=== PATIENT | male | born 1960 | race Caucasian/White ===

== ENCOUNTER 2020-02-17 13:43 | Emergency (ER) | payer SELFPAY ==
[~2020-02-17] VITALS: Ht 182.9 cm; Wt 68.3 kg
[2020-02-17 14:03] VITALS: BP 146/80
[2020-02-17] MEDS ORDERED: ACETAMINOPHEN 325 MG TABLET PO ONE (15:00)
[2020-02-17] MEDS ORDERED: IBUPROFEN 800 MG TABLET PO ONE (15:00)
== END 2020-02-17 15:02 | disposition home or self-care (01) ==
LOC: ED 14:50
DX: M72.2 Plantar fascial fibromatosis (principal); M79.672 Pain in left foot; M79.671 Pain in right foot; F17.200 Nicotine dependence, unspecified, uncomplicated
CPT/HCPCS: 99283

== ENCOUNTER 2020-11-14 16:34 | Inpatient (IN) | payer OTHER ==
[~2020-11-14] VITALS: Ht 182.9 cm; Wt 74.1 kg
--- NOTE | 2020-11-14 16:46 | NUR ---
BIB [facility] FROM TRAIN STATION. PT APPEARED CONFUSED AND COULDN'T STAND UP STRAIGHT PER TS EMPLOYEES. PER [facility] PT WITH A 104.1 TEMP. PIV X2, NS STARTED.
[2020-11-14] MEDS ORDERED: ACETAMINOPHEN 500 MG TABLET ONE (17:17)
--- NOTE | 2020-11-14 17:30 | NUR ---
PT QUITE RESTLESS. CONSTANTLY REMOVING MASK AND NASAL CANNULA. PROVIDER UPDATED FOR MED. PT EDUCATED AND VERBALIZES UNDERSTANDING.
[2020-11-14] MEDS ORDERED: LORazepam 2 MG/ML, 1ML ONE (17:42)
[2020-11-14 17:48] LABS: AMPHETAMINE SCREEN, URINE Negative (Negative); BARBITURATE SCREEN, URINE Negative (Negative); BENZODIAZEPINE SCREEN, URINE Negative (Negative); CANNABINOID SCREEN, URINE Positive (Negative); COCAINE SCREEN, URINE Negative (Negative); METHADONE SCREEN, URINE Negative (Negative); OPIATE SCREEN, URINE Negative (Negative)
[2020-11-14 17:49] LABS: MEAN CORPUSCULAR HEMOGLOBIN 34.6 pg (27.5-34.5); MEAN CORPUSCULAR HGB CONC 34.3 g/dL (33.2-36.2); MEAN PLATELET VOLUME 7.5 fL (7.4-10.4); PLATELET COUNT 169 x10^3/uL (130-400); RED BLOOD COUNT 4.43 x10^6/uL (4.38-5.82); RED CELL DISTRIBUTION WIDTH 13.1 % (9.4-14.8)
[2020-11-14 17:58] LABS: MICROSCOPIC INDICATED
[2020-11-14] MEDS ORDERED: CEFTRIAXONE PMX 1GM/50ML 50 ML ONE (17:58)
[2020-11-14] MEDS ORDERED: SODIUM CHLORIDE FLUSH 10ML SYR IVF ONE (18:00)
[2020-11-14] MEDS ORDERED: CEFTRIAXONE PMX 1GM/50ML 50 ML IV ONE (18:00)
[2020-11-14] MEDS ORDERED: ACETAMINOPHEN 500 MG TABLET PO ONE (18:00)
[2020-11-14] MEDS ORDERED: SODIUM CHLORIDE 0.9% 1,000ML IVBOLUS ONE (18:00)
[2020-11-14] MEDS ORDERED: LORazepam 2 MG/ML, 1ML IVPush ONE ×2 (18:00→19:00)
[2020-11-14 18:01] LABS: ALANINE AMINOTRANSFERASE 26 U/L (12-78); ALBUMIN 2.8 g/dL (3.4-5.0); ANION GAP 11 mmol/L (5-15); CALCIUM 7.3 mg/dL (8.5-10.1); CHLORIDE 103 mmol/L (98-107); CREATININE 0.59 mg/dL (0.7-1.3)
[2020-11-14 18:11] LABS: ALKALINE PHOSPHATASE 65 U/L (45-117); BILIRUBIN,TOTAL 1.1 mg/dL (0.2-1.0); TOTAL PROTEIN 6.1 g/dL (6.4-8.2)
[2020-11-14 18:22] LABS: MD YES
[2020-11-14 18:23] LABS: <PLATELET ESTIMATE> ADEQUATE; BAND#(MANUAL) 0.43 x10^3/uL; BANDS%(MANUAL) 2 % (0-7); LYMPH#(MANUAL) 1.28 x10^3/uL (1-3.4); LYMPHS% (MANUAL) 6 % (22-44); MONOS% (MANUAL) 7 % (2-9); SEG#(MANUAL) 18.19 x10^3/uL (1.8-6.8); SEGS% (MANUAL) 85 % (42-75)
[2020-11-14 18:24] LABS: <PLT MORPHOLOGY> NORMAL PLT MORPH; <RBC MORPHOLOGY> NORMAL
--- NOTE | 2020-11-14 18:26 | NUR ---
PT CONTINUES TO TAKE OFF NASAL CANNULA. PT 88% ON RA. PT MEDICATED PER NOV.
[2020-11-14 18:35] LABS: FREE T4 (FREE THYROXINE) 1.79 ng/dL (0.76-1.46)
[2020-11-14] MEDS ORDERED: AZITHROMYCIN 500 MG in SODIUM CHLORIDE 0.9% 250 ML IV ONE (19:00)
--- NOTE | 2020-11-14 19:07 | NUR ---
PT MOUTH BREATHING ON 6L NASAL CANNULA. CHANGED TO OXYMASK 6L SPO2 NOW 92%.
--- NOTE | 2020-11-14 19:20 | NUR ---
EDP AT BEDSIDE. TYE ORDERED. TO WATCH PT FOR ANOTHER 30 MIN APPROX BEFORE PT TO FLOOR.
[2020-11-14] MEDS ORDERED: ALBUTEROL/IPRATROPIUM 2.5MG/0.5MG, 3 ML ONE (19:24)
[2020-11-14] MEDS ORDERED: ALBUTEROL/IPRATROPIUM 2.5MG/0.5MG, 3 ML NEB ONE ×2 (19:30→20:00)
[2020-11-14] MEDS ORDERED: POTASSIUM CHLORIDE 20 MEQ, MAGNESIUM SULFATE 1 GM, FOLIC ACID 1 MG, THIAMINE 200 MG in ... IV ONE (19:30)
--- NOTE | 2020-11-14 19:55 | NUR ---
REPORT FROM FLORENTIN BARRETT RT TO BEDSIDE-PLACED ON OPTIFLOW
[2020-11-14] MEDS ORDERED: BISACODYL 10 MG SUPP PR PRN (20:00)
[2020-11-14] MEDS ORDERED: NS + 20MEQ KCL 1,000 ML IV SCH (20:00)
[2020-11-14] MEDS ORDERED: MAGNESIUM SULFATE PMX 4GM/100M 100 ML IVPB ONE (20:00)
[2020-11-14] MEDS ORDERED: ONDANSETRON ODT 4 MG PO PRN (20:00)
[2020-11-14] MEDS ORDERED: GUAIFENESIN/DM 200-20MG, 10ML UDC PO PRN (20:00)
[2020-11-14] MEDS ORDERED: ALBUTEROL SULFATE 2.5MG/0.5ML NPPB ONE (20:00)
[2020-11-14] MEDS ORDERED: POLYETHYLENE GLYCOL 17 GM PACKET PO PRN (20:00)
[2020-11-14] MEDS ORDERED: AZITHROMYCIN 500 MG in SODIUM CHLORIDE 0.9% 250 ML IV SCH (20:00)
--- NOTE | 2020-11-14 20:19 | NUR ---
With reassessment-pox improved to 97% on optiflow at 12lpm covid n/p swab obtained per guidelines-walked to lab Addendum: 11/14/20 at 2104 by RFRUHLING CORRECTION: 50 LPM- NOT 12LPM
--- NOTE | 2020-11-14 20:50 | NUR ---
ED MED ORDERS NOT ADMINISTERED DISCUSSED WITH INPATIENT RN JULES (POTASSIUM, ROCEPHIN, ETC). SHE WILL ADMIN NECCESSARY
[2020-11-14 22:00] VITALS: BP 142/83
[2020-11-14] MEDS: CEFTRIAXONE PMX 1GM/50ML 50 ML IV SCH (22:01)
[2020-11-14] MEDS: HEPARIN 5,000 UNITS/ML, 1ML SQ SCH (22:24)
[2020-11-14] MEDS ORDERED: No meds (22:34)
[2020-11-14] MEDS: THIAMINE 100MG TABLET PO SCH (23:22)
[2020-11-15 03:02] VITALS: BP 137/79
[2020-11-15 05:48] LABS: MEAN CORPUSCULAR HEMOGLOBIN 34.6 pg (27.5-34.5); MEAN CORPUSCULAR HGB CONC 34.1 g/dL (33.2-36.2); MEAN PLATELET VOLUME 7.6 fL (7.4-10.4); PLATELET COUNT 167 x10^3/uL (130-400); RED BLOOD COUNT 4.43 x10^6/uL (4.38-5.82)
[2020-11-15 05:49] LABS: MD YES
[2020-11-15 05:56] LABS: ANION GAP 6 mmol/L (5-15); CALCIUM 8.2 mg/dL (8.5-10.1); CHLORIDE 106 mmol/L (98-107)
[2020-11-15] MEDS: HEPARIN 5,000 UNITS/ML, 1ML SQ SCH ×3 (06:15→21:12)
[2020-11-15 06:45] LABS: <PLATELET ESTIMATE> ADEQUATE; <PLT MORPHOLOGY> NORMAL PLT MORPH; BAND#(MANUAL) 4.75 x10^3/uL; BANDS%(MANUAL) 19 % (0-7); LYMPHS% (MANUAL) 4 % (22-44); MONOS% (MANUAL) 8 % (2-9); PMNS WITH VACUOLES 1+; SEG#(MANUAL) 17.25 x10^3/uL (1.8-6.8); SEGS% (MANUAL) 69 % (42-75)
[2020-11-15 06:46] LABS: <RBC MORPHOLOGY> NORMAL
[2020-11-15 06:51] VITALS: BP 161/90
[2020-11-15] MEDS: THIAMINE 100MG TABLET PO SCH ×2 (08:55→21:11)
[2020-11-15] MEDS: FOLIC ACID 1 MG TABLET PO SCH (08:55)
[2020-11-15] MEDS: MULTIVITAMINS/MINERALS TABLET PO SCH (08:55)
[2020-11-15] MEDS: SENNA/DOCUSATE TABLET PO SCH (08:56)
[2020-11-15] MEDS ORDERED: DEXAMETHASONE 4 MG/ML, 1ML IVPush SCH (09:30)
[2020-11-15] MEDS ORDERED: ZINC SULFATE 220 MG CAPSULE PO SCH (09:30)
[2020-11-15] MEDS: CHOLECALCIFEROL 5,000u TAB PO SCH (09:52)
[2020-11-15] MEDS: METHIMAZOLE 5 MG TAB PO SCH (09:53)
[2020-11-15] MEDS: ASCORBIC ACID 500 MG TABLET PO SCH ×2 (09:53→16:11)
[2020-11-15 13:18] VITALS: BP 168/78
[2020-11-15] MEDS ORDERED: ALBUTEROL HFA 90 MCG/SPRAY INH PRN (16:00)
[2020-11-15 19:43] VITALS: BP 120/83
[2020-11-15] MEDS ORDERED: AZITHROMYCIN 500 MG in SODIUM CHLORIDE 0.9% 250 ML IV SCH (20:00)
[2020-11-15] MEDS: ACETAMINOPHEN 325 MG TABLET PO PRN (21:11)
[2020-11-15] MEDS: CEFTRIAXONE PMX 1GM/50ML 50 ML IV SCH (21:11)
[2020-11-16 01:01] VITALS: BP 134/84
[2020-11-16] MEDS: HEPARIN 5,000 UNITS/ML, 1ML SQ SCH ×3 (05:11→21:06)
[2020-11-16 06:18] LABS: MEAN CORPUSCULAR HEMOGLOBIN 34.7 pg (27.5-34.5); MEAN CORPUSCULAR HGB CONC 34.1 g/dL (33.2-36.2); MEAN PLATELET VOLUME 7.8 fL (7.4-10.4); PLATELET COUNT 163 x10^3/uL (130-400); RED BLOOD COUNT 4.11 x10^6/uL (4.38-5.82); RED CELL DISTRIBUTION WIDTH 13.1 % (9.4-14.8)
[2020-11-16 06:31] LABS: ALBUMIN 2.4 g/dL (3.4-5.0); ANION GAP 7 mmol/L (5-15); CALCIUM 8.4 mg/dL (8.5-10.1); CHLORIDE 111 mmol/L (98-107)
[2020-11-16 06:34] LABS: ALANINE AMINOTRANSFERASE 33 U/L (12-78); ALKALINE PHOSPHATASE 66 U/L (45-117); BILIRUBIN,TOTAL 0.7 mg/dL (0.2-1.0); CREATININE 0.45 mg/dL (0.7-1.3); TOTAL PROTEIN 6.1 g/dL (6.4-8.2)
[2020-11-16] MEDS: SENNA/DOCUSATE TABLET PO SCH (07:18)
[2020-11-16] MEDS: ASCORBIC ACID 500 MG TABLET PO SCH ×2 (07:33→16:12)
[2020-11-16] MEDS: THIAMINE 100MG TABLET PO SCH ×2 (07:33→21:05)
[2020-11-16] MEDS: FOLIC ACID 1 MG TABLET PO SCH (07:33)
[2020-11-16] MEDS: CHOLECALCIFEROL 5,000u TAB PO SCH (07:33)
[2020-11-16] MEDS: MULTIVITAMINS/MINERALS TABLET PO SCH (07:33)
[2020-11-16] MEDS: AZITHROMYCIN 500 MG TABLET PO SCH (07:33)
[2020-11-16] MEDS: METHIMAZOLE 5 MG TAB PO SCH (07:34)
[2020-11-16] MEDS: ACETAMINOPHEN 325 MG TABLET PO PRN ×3 (07:41→21:46)
[2020-11-16 07:45] LABS: MD YES
[2020-11-16 07:46] LABS: <RBC MORPHOLOGY> NORMAL; BAND#(MANUAL) 1.78 x10^3/uL; BANDS%(MANUAL) 10 % (0-7); LYMPHS% (MANUAL) 9 % (22-44); MONOS#(MANUAL) 0.71 x10^3/uL (0.3-2.7); MONOS% (MANUAL) 4 % (2-9); SEG#(MANUAL) 13.71 x10^3/uL (1.8-6.8); SEGS% (MANUAL) 77 % (42-75)
[2020-11-16 07:47] LABS: <PLATELET ESTIMATE> ADEQUATE; <PLT MORPHOLOGY> NORMAL PLT MORPH; PMNS WITH VACUOLES 1+
[2020-11-16 07:58] VITALS: BP 144/84
[2020-11-16] MEDS ORDERED: LOPERAMIDE 2 MG CAPSULE PO ONE (09:30)
[2020-11-16 12:16] VITALS: BP 142/89
[2020-11-16] MEDS: LACTOBACILLUS CHEW TABLET PO SCH ×2 (15:20→21:05)
[2020-11-16 18:31] VITALS: BP 140/82
[2020-11-16] MEDS: CEFTRIAXONE PMX 1GM/50ML 50 ML IV SCH (21:05)
[2020-11-17 01:10] VITALS: BP 176/95
[2020-11-17 01:50] VITALS: BP 151/88
[2020-11-17] MEDS: HEPARIN 5,000 UNITS/ML, 1ML SQ SCH ×3 (05:20→19:39)
[2020-11-17 06:48] LABS: BASOPHILS % (AUTO) 1 % (0-1); EOSINOPHILS % (AUTO) 0 % (1-7); LYMPHOCYTES % (AUTO) 15 % (22-44); MD NO; MEAN CORPUSCULAR HEMOGLOBIN 34.5 pg (27.5-34.5); MEAN CORPUSCULAR HGB CONC 33.9 g/dL (33.2-36.2); MONOCYTES % (AUTO) 12 % (2-9); NEUTROPHILS % (AUTO) 73 % (42-75); PLATELET COUNT 218 x10^3/uL (130-400); RED BLOOD COUNT 4.22 x10^6/uL (4.38-5.82); RED CELL DISTRIBUTION WIDTH 13.1 % (9.4-14.8)
[2020-11-17 06:52] VITALS: BP 146/85
[2020-11-17 07:02] LABS: ANION GAP 6 mmol/L (5-15); CALCIUM 8.7 mg/dL (8.5-10.1); CHLORIDE 109 mmol/L (98-107)
[2020-11-17 07:04] LABS: CREATININE 0.48 mg/dL (0.7-1.3)
[2020-11-17] MEDS: SENNA/DOCUSATE TABLET PO SCH (09:00)
[2020-11-17] MEDS: THIAMINE 100MG TABLET PO SCH ×2 (10:49→19:39)
[2020-11-17] MEDS: METHIMAZOLE 5 MG TAB PO SCH (10:49)
[2020-11-17] MEDS: LACTOBACILLUS CHEW TABLET PO SCH ×3 (10:49→19:39)
[2020-11-17] MEDS: MULTIVITAMINS/MINERALS TABLET PO SCH (10:49)
[2020-11-17] MEDS: FOLIC ACID 1 MG TABLET PO SCH (10:49)
[2020-11-17] MEDS: AZITHROMYCIN 500 MG TABLET PO SCH (10:49)
[2020-11-17] MEDS: ASCORBIC ACID 500 MG TABLET PO SCH ×2 (10:49→16:42)
[2020-11-17] MEDS: CHOLECALCIFEROL 5,000u TAB PO SCH (10:50)
[2020-11-17] MEDS: ACETAMINOPHEN 325 MG TABLET PO PRN (10:56)
[2020-11-17 14:01] VITALS: BP 161/104
[2020-11-17] MEDS: CEFTRIAXONE PMX 1GM/50ML 50 ML IV SCH (19:39)
[2020-11-17 19:51] VITALS: BP 163/89
[2020-11-18 02:00] VITALS: BP 142/89
[2020-11-18 05:40] LABS: BASOPHILS % (AUTO) 1 % (0-1); EOSINOPHILS % (AUTO) 0 % (1-7); LYMPHOCYTES % (AUTO) 27 % (22-44); MEAN CORPUSCULAR HEMOGLOBIN 34.5 pg (27.5-34.5); MONOCYTES % (AUTO) 17 % (2-9); NEUTROPHILS % (AUTO) 55 % (42-75); PLATELET COUNT 254 x10^3/uL (130-400); RED BLOOD COUNT 4.28 x10^6/uL (4.38-5.82); RED CELL DISTRIBUTION WIDTH 12.9 % (9.4-14.8)
[2020-11-18 05:41] LABS: MD NO
[2020-11-18 05:43] LABS: CHLORIDE 108 mmol/L (98-107)
[2020-11-18 05:48] LABS: ANION GAP 4 mmol/L (5-15); CREATININE 0.53 mg/dL (0.7-1.3)
[2020-11-18] MEDS: HEPARIN 5,000 UNITS/ML, 1ML SQ SCH (05:56)
== END 2020-11-18 07:25 | disposition left against medical advice (07) | DRG 871 ==
LOC: EDBD 16:34 → ED 19:14 → EDIP 19:17 → EDBD 19:17 → MERGE 19:17 → 4EST 20:53
PROVIDERS: ADMIT Family Medicine; ATTEND Family Medicine
DX: A41.9 Sepsis, unspecified organism (principal); J96.01 Acute respiratory failure with hypoxia; J18.9 Pneumonia, unspecified organism; E87.1 Hypo-osmolality and hyponatremia; E03.9 Hypothyroidism, unspecified; D75.89 Other specified diseases of blood and blood-forming organs; Z20.822 Contact with and (suspected) exposure to COVID-19; R65.20 Severe sepsis without septic shock; E83.42 Hypomagnesemia; E83.51 Hypocalcemia; E87.6 Hypokalemia; F10.129 Alcohol abuse with intoxication, unspecified; E80.6 Other disorders of bilirubin metabolism; Z59.0 Homelessness; Z91.14 Patient's other noncompliance with medication regimen; Z91.19 Patient's noncompliance with other medical treatment and regimen
CPT/HCPCS: 36415; 84145; 96361; 96365; 96367; 96375; 96376; 99291; J7121; 71045; 80048; 80053; 80307; 80320; 81001; 82306; 82330; 82607; 83605; 83735; 84439; 84443; 84481; 85025; 87040; 87086; 93005; G0378; J0456; J0696; J1100; J1644; J3411; J3475; J3480; G0480; J2060; J7030; J7050; J7512; U0003